=== PATIENT | female | born 1970 | race Caucasian/White ===

== ENCOUNTER 2018-06-07 16:11 | Emergency (ER) | payer MEDICAID ==
[~2018-06-07] VITALS: Ht 165.1 cm; Wt 144.9 kg
[~2018-06-07 16:11] MED LIST: IBUPROFEN 800800 M1 PO; NOHOMEMEDICATIONS
[2018-06-07] MEDS ORDERED: DOXYCYCLINE MO100 M1 PO (16:32)
[2018-06-08] MEDS ORDERED: KEFLEX500 M2 PO (19:44)
== END 2018-06-07 16:56 | disposition home or self-care (01) ==
LOC: M.ERS 16:11
DX: L02.416 Cutaneous abscess of left lower limb (principal)

== ENCOUNTER 2018-06-08 17:22 | Emergency (ER) | payer MEDICAID ==
[~2018-06-08] VITALS: Ht 167.6 cm; Wt 131.5 kg
[~2018-06-08 17:22] MED LIST changes: +DOXYCYCLINE MO100 M1 PO
[2018-06-08 18:21] LABS: ABSOLUTE BASOPHILS 0.1 thou/uL (0.0-0.2); ABSOLUTE EOSINOPHILS 0.1 thou/uL (0.0-0.7); ABSOLUTE LYMPHOCYTES 3.5 thou/uL (0.8-5.3); ABSOLUTE MONOCYTES 0.7 thou/uL (0.0-1.2); ABSOLUTE NEUTROPHILS 5.5 thou/uL (1.6-8.1); BASOPHILS 0.8 %; EOSINOPHILS 1.2 %; HEMATOCRIT 44.3 % (37.0-47.0); HEMOGLOBIN 14.6 gm/dL (12.0-15.0); LYMPHOCYTES 35.4 %; MCH 29.4 pg (26.0-34.0); MCHC 32.9 g/dL (28.0-37.0); MCV 89.4 fL (80.0-100.0); MONOCYTES 6.9 %; MPV 8.5 fl. (7.2-11.1); NUCLEATED RBCS 0 /100WBC; PLATELET COUNT* 289 thou/uL (150-400); POLYS 55.7 %; RBC 4.95 mil/uL (4.20-5.00); RDW-CV 14.8 % (10.5-14.5); WBC 9.8 thou/uL (4.0-11.0)
[2018-06-08 18:32] LABS: ANION GAP 7 mmol/L (7-16); BUN 6 mg/dL (7-18); CALCIUM 9.2 mg/dL (8.5-10.1); CHLORIDE 101 mmol/L (98-107); CO2 32 mmol/L (21-32); CREATININE 0.8 mg/dL (0.6-1.3); GLUCOSE 105 mg/dL (70-99); POTASSIUM 3.1 mmol/L (3.5-5.1); SODIUM 140 mmol/L (136-145)
[2018-06-08 18:37] LABS: URINE BLOOD 1+ (Negative); URINE CLARITY SL CLOUDY; URINE COLOR DARK YELLOW; URINE GLUCOSE-RANDOM TRACE (Negative); URINE KETONES 2+ (Negative); URINE NITRITE-REFLEX NEGATIVE (Negative); URINE PROTEIN 1+ (Negative); URINE SPECIFIC GRAVITY >= 1.030 (1.005-1.030)
[2018-06-08 18:39] LABS: ALBUMIN 3.1 g/dL (3.4-5.0); ALKALINE PHOSPHATASE 57 U/L (46-116); SGOT 24 U/L (15-37); SGPT 28 U/L (30-65); TOTAL BILIRUBIN 1.1 mg/dL (<0.1-1.0); TROPONIN-I LEVEL <0.06 ng/mL (<0.06)
[2018-06-08 18:40] LABS: ICTOTEST (BILI CONFIRMATORY) Negative (Negative); URINE BILIRUBIN 2+ (Negative); URINE LEUKOCYTES-REFLEX 2+ (Negative)
[2018-06-08 18:48] LABS: SQUAMOUS >10 Many /LPF (0-3); URINE WBC-REFLEX >25 Many /HPF (0-5)
[2018-06-08 18:49] LABS: BACTERIA-REFLEX >30 Many /HPF (None Seen); MUCUS >6 Heavy strn/LPF (None Seen); URINE RBC 3-10 Few /HPF (0-2)
[2018-06-08 18:50] LABS: CRYSTALS None Seen /LPF (None Seen); HYALINE CASTS 4-10 Moderate /LPF (None Seen)
[2018-06-08] MEDS ORDERED: KEFLEX500 M2 PO (19:44)
[2018-06-08 20:01] VITALS: BP 148/100
--- NOTE | 2018-06-09 12:25 | EKG ---
[place] [address] ELECTROCARDIOGRAM REPORT Name: YESENIA MARTINES Room: [facility]#: [id number] Admission: 06/08/18 Attend Phys: Discharge: 06/08/18 Date of : 70 Report #: [id number] THIS REPORT FOR: //name// [facility] ED Test Date: 2018-06-08 Test Time: 17:56:20 Pat Name: YESENIA MARTINES Department: Room: Gender: F [employer]: : 1970 Requested By: Sarah Frazier Order Number: [id number] MD: Ben Palacios Measurements Intervals [place] Rate: 106 P: 24 MD: 132 QRS: 17 QRSD: 86 T: 3 QT: 331 QTc: 440 Interpretive Statements Sinus tachycardia No previous ECG available for comparison Electronically Signed On 06-09-2018 12:25:46 [employer] WRITER OPERATOR by Ben Palacios [email or web address] <ELECTRONICALLY SIGNED> By: Ben Palacios MD, [facility] 06/09/18 1225 1756 1756 Ben Palacios MD, FAC /EPI
== END 2018-06-08 20:02 | disposition home or self-care (01) ==
LOC: M.ERS 17:22
PROVIDERS: Nurse Practitioner Family
DX: L02.416 Cutaneous abscess of left lower limb (principal); N39.0 Urinary tract infection, site not specified